=== PATIENT | male | born 1955 ===

== ENCOUNTER 2017-12-30 01:31 | Inpatient (IN) | payer OTHER ==
--- NOTE | 2017-12-26 19:23 | HISTORY AND PHYSICAL ---
DATE OF ADMISSION: December 30, 2017 IDENTIFICATION AND CHIEF COMPLAINT Pablo is a 61-year-old gentleman with the chief complaint of right hip pain. HISTORY OF PRESENT ILLNESS The patient has a longstanding history of hip arthritis, progressively painful and debilitating, refractory to conservative care. Surgery is indicated to relieve symptoms after failure of nonoperative measures. PAST MEDICAL HISTORY Notable for generally excellent health. ALLERGIES He has no known drug allergies. CURRENT MEDICATIONS He takes no medicine on a daily basis. PAST SURGICAL HISTORY 1. Hernia repair. 2. Removal of a finger tumor. FAMILY HISTORY Notable for mother with cervical cancer. Otherwise negative. SOCIAL HISTORY Negative for tobacco use. He drinks alcohol a couple times a week. He denies abuse. REVIEW OF SYSTEMS Noncontributory. PHYSICAL EXAMINATION GENERAL: Well-developed, well-nourished male, appears stated age. HEENT: Normocephalic, atraumatic. NECK: Supple. LUNGS: Clear. HEART: Regular. ABDOMEN: Soft. ORTHOPEDIC: Right hip has pain on range of motion. He is stiff at the end range. Hip girdle strength is in good condition. Skin is intact. Neurovascular function intact. Calves nontender. Radiographs demonstrated end-stage hip arthritis as well as some collapse of the superior femoral head. ASSESSMENT Right hip end-stage degenerative joint disease refractory to conservative care. PLAN Per patient request, we are going to proceed with total hip arthroplasty. The nature of this procedure, risks, benefits, and anticipated rehab course were reviewed. The risks of the procedure include, but are not limited to , major medical or anesthetic complication, infection, neurovascular injury, blood transfusion, stiffness, scarring, fracture, tendon rupture, instability, leg length discrepancy, implant loosening, migration, or failure, persistent or recurrent pain, need for additional surgery, and other unforeseen. He understands and wishes to proceed. Signed permit was placed in the chart. No guarantees were given or implied. [facility] SYSTEMRakes[facility]
[2017-12-29 15:17] LABS: INR 0.95
[2017-12-30] VITALS (14 sets, daily range): BP systolic 95–143; BP diastolic 64–98
[~2017-12-30] VITALS: Ht 182.9 cm; Wt 97.5 kg
[2017-12-30] MEDS ORDERED: ceFAZolin(*) 2GM/D5W 50ML 50 ML IVPB ONE (06:15)
[2017-12-30] MEDS ORDERED: LIDOCAINE/SOD BICARB 8.4% SYR ID ONE (06:15)
[2017-12-30] MEDS ORDERED: cloNIDine EPIDUR INJ 100MCG/ML 40 MCG, ROPIVACAINE 0.5% 20 ML VIAL 25 ML, EPINEPHrine H... INJ ONE (06:15)
[2017-12-30] MEDS ORDERED: TRANEXAMIC AC 1000 MG/10ML SDV 1,000 MG in DEXTROSE 5% 50 ML BAG 50 ML IV ONE (06:15)
[2017-12-30] MEDS ORDERED: MIDAZOLAM 2 MG/2 ML VIAL IVP PRN (06:15)
[2017-12-30] MEDS ORDERED: NORMOSOL R SOLN(*) 1000 ML BAG 1,000 ML IV PRN ×2 (06:15→09:55)
[2017-12-30] MEDS ORDERED: FAMOTIDINE 20 MG TAB PO ONE (06:15)
[2017-12-30] MEDS ORDERED: fentaNYL CITR 100 MCG/2 ML AMP ONE (07:01)
[2017-12-30] MEDS ORDERED: PROPOFOL EMUL(*) 10MG/ML 20 ML 20 ML ONE (07:02)
[2017-12-30] MEDS ORDERED: LIDOCAINE 2% IV 100 MG/5ML SYR ONE (07:02)
[2017-12-30] MEDS ORDERED: DEXAMETHASONE SOD 4 MG/ML VIAL ONE (07:39)
[2017-12-30] MEDS ORDERED: ePHEDrine 25 MG/5 ML DISP.SYR IVP ONE (07:44)
[2017-12-30] MEDS ORDERED: ONDANSETRON 4 MG/2 ML VIAL ONE (08:14)
--- NOTE | 2017-12-30 09:42 | RADIOLOGY IMAGING REPORT ---
FACILITY: [facility] [place] PATIENT NAME: Maximino France : 1955 MR: [id number] V: [id number] EXAM DATE: ORDERING PHYSICIAN: ABEBA MORALES TECHNOLOGIST: Location: [facility] Patient: Maximino France : 1955 Visit/Account:[id number] Date of Sevice: 12/30/2017 Technique: PELVIS HISTORY: S/P TOTAL RIGHT HIP ARTHROPLASTY. CHECK PLACEMENT Comparison studies: None FINDINGS: Present is a right hip arthroplasty. Overall, there is gross anatomic alignment. No acute fracture. Expected adjacent postoperative changes are noted. IMPRESSION: 1. Right hip arthroplasty with gross anatomic alignment. Report Dictated By: Herbie Cevallos DO at 12/30/2017 9:37 AM Report E-Signed By: Herbie Cevallos DO at 12/30/2017 9:38 AM WSN:[id number]
[2017-12-30] MEDS ORDERED: diphenhydrAMINE 25 MG CAP PO PRN (09:55)
[2017-12-30] MEDS ORDERED: BISACODYL 10 MG SUPP PR PRN (09:55)
[2017-12-30] MEDS ORDERED: MAGNESIUM HYDROXIDE* 30ML UDCP PO PRN (09:55)
[2017-12-30] MEDS ORDERED: diphenhydrAMINE 50 MG/ML VIAL IVP PRN (09:55)
[2017-12-30] MEDS ORDERED: ZOLPIDEM TARTRATE 5 MG TAB PO PRN (09:55)
[2017-12-30] MEDS ORDERED: DIAZEPAM 5 MG TAB PO PRN (09:55)
[2017-12-30] MEDS ORDERED: PROMETHAZINE 25 MG/ML 1 ML AMP IVP PRN (09:55)
[2017-12-30] MEDS ORDERED: BENZOCAINE/MENTHOL 1 EACH LOZG PO PRN (09:55)
[2017-12-30] MEDS ORDERED: APAP/HYDROCODONE 325/7.5 TAB PO PRN (09:55)
[2017-12-30] MEDS ORDERED: FLUSH 10 ML SYR IVP PRN (09:55)
--- NOTE | 2017-12-30 12:11 | Hospitalist Consultation ---
History of Present Illness Requesting Physician Dr. Agustin Reason for Consult Medication Management Chief Complaint s/p total hip replacement History of Present Illness He had a right total hip replacement. It is reported that there were no known complications. History Problems: (1) Hip arthritis Status: Chronic (2) History of hernia repair Home Meds No Active Prescriptions or Reported Meds Allergies: Coded Allergies: No Known Drug Allergies (Unverified , 12/23/17) Patient History: FH: Alzheimers disease FATHER, FH: cancer MOTHER FH: dementia FATHER, Hx Smoking: No Smoking Status: Never Smoker Exposure to Second Hand Smoke?: No Caffeine Intake: Coffee, Tea Caffeine/Cups Per Day: 2-3 CUP DAILY Hx Alcohol Use: Yes Alcohol Used: Beer Hx Substance Use Disorder: No Social Drug Use: Never History of IV Drug Use: No Review of Systems All Systems Reviewed/Normal: Yes, Except as Noted Exam Vital Signs Vital Signs Date Time Temp Pulse Resp B/P (MAP) Pulse Ox O2 Delivery O2 Flow Rate FiO2 12/30/17 10:30 71 16 99 12/30/17 05:25 98.7 143/98 (113) Room Air General Appearance: Alert, Awake, No Acute Distress, Afebrile Cardiovascular: Regular Rate and Rhythm Respiratory: No Respiratory Distress, Clear to Auscultation Psych: Alert & Oriented X3, Appropriate Mood & Affect Assessment and Plan Problems: (1) Status post right hip replacement Status: Acute Assessment & Plan: He will be placed on Aspirin 325mg for 30 days post operatively. He has no history of PE/ DVT. Venous Thromboembolism Antithrombotics Is Pt On Any Antithrombotics?: No Prophylaxis Tx Contraindicated Pharmacological Contraindicati: Surgical Contraindication SIERRA SHARMA LIQUEFIED PETROLEUM GASFITTER Dec 30, 2017 12:11
[2017-12-30] MEDS ORDERED: NS(*) 0.9% 250 ML BAG 250 ML ONE (15:10)
[2017-12-30] MEDS: ceFAZolin(*) 1 GM VIAL 1 GM in NS(*) 0.9% 100 ML ADDVANT BAG 100 ML IVPB SCH ×2 (15:29→23:32)
[2017-12-30] MEDS: CELECOXIB 200 MG CAP PO SCH (17:00)
--- NOTE | 2017-12-30 18:25 | OPERATIVE REPORT 1 ---
EVENT DATE: December 30, 2017 SURGEON: Angelito Agustin MD ANESTHESIOLOGIST: Martin Croft MD ANESTHESIA: General plus spinal. 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 POSTOPERATIVE DIAGNOSIS Right hip degenerative joint disease. PROCEDURE PERFORMED Right total hip arthroplasty. ESTIMATED BLOOD LOSS 300 mL DRAINS None. SPECIMENS None. COMPLICATIONS None apparent. IMPLANTS USED [place] system with a Trident PSL VALENTE cluster acetabular shell size 52, a Trident X3 zero-degree polyethylene 36 mm head-accommodating liner, Secur-Fit Max 132-degree hip stem size 12 with a Ceramic C-Taper Biolox femoral head 36 mm , -2.5 neck length. INDICATIONS Pablo is a 62-year-old gentleman with intractable pain and disability related to end-stage hip arthritis. Surgery is indicated to relieve symptoms after failure of nonoperative measures. DESCRIPTION OF PROCEDURE The patient was taken to the operating room and placed supine on the operating table. General anesthesia was induced after spinal block was administered by the anesthesiologist. Antibiotics and TXA were administered IV. The patient was positioned in the left lateral decubitus on a well-padded pegboard. His pelvis was secured in a vertical position. All bony prominences and superficial nerves were well padded. The right hip, groin, and lower extremity were prepped and draped in the usual sterile fashion for hip arthroplasty. A small incision in the posterolateral approach was made and carried down through the skin and subcutaneous tissue to the deep fascia. The fascia was incised over the tip of the trochanter and extended distally in line with the femur and proximally in line with the cabrera fibers. The cabrera fibers were split bluntly. The trochanteric bursa was excised. The interval between the abductors and external rotators were identified, and the abductor mechanism was protected with a blunt Hohmann. An L capsulotomy/tenotomy was performed with the horizontal limb just above the piriformis, extending into the fossa, and then releasing the external rotators of the capsule off the back aspect of the femur. This was tagged for later anatomic reattachment. The femoral head was dislocated. End-stage arthritis was noted. A 1.5 cm neck cut was made consistent with preoperative templating. The femoral head was extracted. The femur was translocated anteriorly. Marlyn-acetabular retractors were placed with tips down on bone to avoid injury to critical neurovascular structures. The labrum and pulvinar were excised. A 44 mm reamer was used to medialize to the true medial wall of the acetabulum. This was expanded in 2 mm increments up to 52 where a nice rim capture was obtained. The 52 trial had nice [id number] fit. A 53 was used to open for the acetabulum. The wound was copiously lavaged , and the actual shell was impacted in approximately 40 to 45 degrees of lateral opening and 15 degrees of anteversion. Using the transverse acetabular ligament, extracorporeal guide, and internal bony landmarks to guide socket placement, a rock-solid rim purchase was obtained. No adjuvant fixation was felt to be needed. The shell was lavaged and dried, and the latter was impacted into place. Attention was turned to femoral preparation. Superior neck was resected with the misha cutter. The Kelly awl found the canal. Tapered reaming was performed up to 12 where excellent end-ostial contact was obtained. Broaching started with 9 and worked up to 12, taking care to lateralize and follow the lac vieux version and the calcar. The 12 broach had excellent stability, fit, and fill. A trial reduction was performed off this. Good worship of the limb length and stability was achievable. The final stem was impacted and seated nicely. A trial reduction was performed with various neck lengths. The -2.5 was felt to be optimal to balance limb length and stability. This was selected. The George taper was lavaged, and the Biolox head was impacted onto the George taper. The joint was reduced. The wound was copiously lavaged. A pain cocktail was infiltrated throughout the wound. Drill holes 2.0 were placed in the back of the trochanter for anatomical reattachment of the capsule and the external rotators. The defect was closed distally with #2 Ethibond and proximally with #2 Vicryl. The subcutaneous tissue was lavaged. Hemostasis was assured. Sutures of 3-0 Vicryl were used for the dermis and surgical rosey for the skin. Xeroform, a dry, sterile dressing, and a hip wrap were applied. The patient was rolled supine, and an abduction pillow was placed. He was awakened from anesthesia and taken to the recovery room in stable condition, having tolerated the procedure well. PLAN The plan is for standard [facility] rehab protocol, posterior hip precautions, and weightbearing as tolerated. MTDD
[2017-12-30] MEDS: ACETAMINOPHEN 325 MG TAB PO PRN (19:33)
[2017-12-31] MEDS: ACETAMINOPHEN 325 MG TAB PO PRN ×3 (01:05→10:34)
[2017-12-31 05:48] VITALS: BP 122/82
[2017-12-31 07:18] VITALS: BP 112/79
[2017-12-31] MEDS: CELECOXIB 200 MG CAP PO SCH (07:34)
[2017-12-31] MEDS: ceFAZolin(*) 1 GM VIAL 1 GM in NS(*) 0.9% 100 ML ADDVANT BAG 100 ML IVPB SCH (07:34)
--- NOTE | 2017-12-31 08:13 | Hospitalist Progress Note ---
Subjective Progress Notes Subjective Patient has no complaints this morning. He is ready to go home. Patient Complains of: Cardiovascular: No: Chest Pain Respiratory: No: Shortness of Breath Physical Exam Vital Signs Date Time Temp Pulse Resp B/P (MAP) Pulse Ox O2 Delivery O2 Flow Rate FiO2 12/31/17 07:22 92 12/31/17 07:22 Room Air 12/31/17 07:18 99.0 96 16 112/79 (90) 12/30/17 11:45 2.0 General Appearance: Alert, Awake, No Acute Distress, Afebrile Cardiovascular: Regular Rate and Rhythm Respiratory: No Respiratory Distress, Clear to Auscultation Psych: Alert & Oriented X3, Appropriate Mood & Affect Assessment and Plan Problems: (1) Status post right hip replacement Status: Acute Assessment & Plan: He will be placed on Aspirin 325mg for 30 days post operatively. He has no history of PE/ DVT. Exam Sepsis Risk: No Definite Risk SIERRA SHARMA Dec 31, 2017 08:13
[2017-12-31] MEDS ORDERED: ASPI-757 PO (08:14)
[2017-12-31] MEDS ORDERED: HYDR-4308 PO (08:53)
[2017-12-31] MEDS ORDERED: CELE-1 PO (08:55)
[2017-12-31] MEDS ORDERED: ASPIRIN 325 MG TAB PO SCH (09:00)
== END 2017-12-31 11:30 | disposition home or self-care (01) | DRG 470 ==
LOC: OR 01:31 → MED 11:30
PROVIDERS: ADMIT Orthopaedic Surgery; ATTEND Orthopaedic Surgery
PROC: 0SR904Z Replacement of Right Hip Joint with Ceramic on Polyethylene Synthetic Substitute, Open Approach (ICD-10-PCS; principal; 2017-12-30 07:11)
DX: M16.11 Unilateral primary osteoarthritis, right hip (principal); I10 Essential (primary) hypertension
CPT/HCPCS: 36415; 72170; 85610; 86850; 86900; 86901; 97161; 97165; J0171; J0690; J0735; J1100; J1885; J2001; J2250; J2405; J2704; J2795; J3010; J7050; J7060